=== PATIENT | male | born 1955 | race African-American/Black ===

== ENCOUNTER 2024-03-12 12:20 | Emergency (ER) | payer MEDICAID, OTHER, SELFPAY ==
--- NOTE | ~2024-03-12 | XR_ITS ---
EXAMINATION: XR chest 2V CLINICAL INFORMATION: Chest pain COMPARISON: No prior chest x-ray available in our system for comparison at the time of this dictation. TECHNIQUE: XR chest 2V, 2 Views Lungs and Sara: Both lungs are clear. Pleura: Normal. Costophrenic angles are sharp. No pneumothorax. Heart: The heart is normal in size. Mediastinum: The mediastinum is within normal limits.. Bones: Skeletal structures included are normal for patient's age. XR/XR chest 2V IMPRESSION: No radiographic evidence of acute cardiopulmonary disease.
[2024-03-12 12:42] LABS: Glucose, Whole Blood 377 mg/dL (60-115)
[2024-03-12 12:55] VITALS: BP 116/80; BP 179/84; PULSE 65; PULSE 99; RESP 16; TEMP 36.8; O2SAT 99
[2024-03-12 13:07] VITALS: BP 179/84; PULSE 99; RESP 16; TEMP 36.8; O2SAT 99; BMI 23.6
--- NOTE | 2024-03-12 13:15 | ECG_ITS ---
Test Reason : CHEST PAIN Blood Pressure : / mmHG Vent. Rate : 057 BPM Atrial Rate : 057 BPM P-R Int : 162 ms QRS Dur : 090 ms QT Int : 396 ms P-R-T Axes : 079 067 065 degrees QTc Int : 385 ms Sinus bradycardia Minimal voltage criteria for LVH, may be normal variant ( Sokolow-Dumont ) Borderline ECG No previous ECGs available Referred By: Bee Hensley Electronically Signed By:KENYATTA BEST MD
--- NOTE | 2024-03-12 13:15 | ED_ITS ---
HPI - Psych General Chief Complaint: Psychiatric Symptoms Stated Complaint: PSYCH W/HI, COOPERATIVE PER EMS Time Seen by Provider: 03/12/24 13:01 Source: patient, EMS and old records reviewed Mode of arrival: EMS Limitations: other (poor historian) History of Present Illness HPI Narrative: 68 yo male with TBI, dementia, schizophrenia, GERD, anxiety, seizures, HLD, HTN, COPD here with c/o reportedly having HI, agitation towards staff, attempting to leave [facility]. Sent on S12. He tells me he has rib pain no trauma x 1 month. complaint: other Onset (ago): day(s) (last day) Duration: intermittent History of same: Yes Relieving factors: none Exacerbating factors: other Associated psychiatric symptoms: none Associated symptoms: denies other symptoms Treatments prior to arrival: placed on mental health hold Related Data Allergies Allergy/AdvReac Type Severity Reaction Status Date / Time No Known Allergies Allergy Verified 03/12/24 13:16 Review of Systems 2 Review of Systems: ROS unable to be obtained due to poor historian. [facility] Past Medical History Attestation statement: The following information was validated with the patient. Source: old records reviewed Medical History Dementia History of alcohol abuse Diabetes Hypertension High cholesterol Paranoid schizophrenia GERD (gastroesophageal reflux disease) Anxiety and depression Seizure disorder Traumatic brain injury History of primary testicular cancer Surgical History History of orchiectomy Social History Social History Alcohol intake: former Patient Tobacco Use Status: Tobacco use Unknown Smoked in Last 30 Days: No Use of substances other than those prescribed or required for medical reasons: No Advance Directives: No Advance Directives Information Provided: No Do you have a plan to hurt others: No Plan Physical Exam 2 Vital Signs: Vital Signs: Last Vital Signs Temp 98.3 F 03/12/24 13:07 Pulse 99 03/12/24 13:07 Resp 16 03/12/24 13:07 BP 179/84 H 03/12/24 13:07 Pulse Ox 99 03/12/24 13:07 O2 Del Method Room Air 03/12/24 13:07 BMI result Body Mass Index 23.6 Appearance: Alert. Oriented to person and place. No acute distress. Eyes: Pupils equal, round and reactive to light. ENT: Pharynx normal. Neck: Normal inspection. Neck supple. CVS: Normal heart rate and rhythm. Pulses normal. Respiratory: No respiratory distress. Breath sounds normal. Abdomen: Soft and nontender. Skin: Skin warm and dry. Normal skin color. Normal skin turgor. Extremities: No lower extremity edema. Neuro: Oriented X 2. No motor deficit. No sensory deficit. CN2-12 intact Course Course Course Narrative: signed out to Dr. Crawford pending xray and CARE team input Medications Administered Generic Name Dose Route Start Last Admin Trade Name Freq PRN Reason Stop Dose Admin Insulin Human Lispro 0 unit 03/12/24 15:15 03/12/24 15:27 Insulin Lispro 100 Unit/Ml 3 Ml Vial SUBCUT 10 unit QIDACHS CHAIM Administration Protocol Medical Decision Making Medical Decision Making MDM Narrative: 68 yo male with TBI, dementia, schizophrenia, GERD, anxiety, seizures, HLD, HTN, COPD here with c/o HI and abnormal behaviors tried to [facility] at this time he is calm and cooperative will obtain basic labs and UA he does c/o rib pain x 1 month, EKG, CXR and trop x 1 ordered. Differential Diagnosis Differential Diagnoses: The differential diagnosis associated with the presentation includes dementia, schizophrenia Admission/Observation Consideration of admission/observation: Escalation of care including admission/observation considered physician observation started at 134pm pending CARE team and labs Consult Healthcare Provider Management of the patient was discussed with: Behavioral Health Provider Lab Data [facility] Lab Attestation statement: I reviewed the patient's lab results. 03/12/24 13:58 03/12/24 13:58 Labs: Lab Results 03/12/24 03/12/24 03/12/24 Range/Units 12:39 13:41 13:58 WBC 8.4 (4.8-10.8) X10*3/uL RBC 5.17 (4.60-5.80) X10*6/uL Hgb 15.3 (14.0-18.0) g/dl Hct 42.9 (42.0-52.0) % MCV 83.0 (80.0-98.0) fL MCH 29.6 (27.0-33.0) pg MCHC 35.7 (31.0-36.0) g/dl RDW 11.5 (11.0-16.0) % Plt Count 193 (160-400) X10*3/uL MPV 11.4 (9.4-12.4) fL Immature Gran % (Auto) 0.5 H (0.0-0.4) % Neut % (Auto) 72.2 (45-73) % Lymph % (Auto) 18.7 L (20-40) % [place] % (Auto) 6.7 (2-11) % Eos % (Auto) 1.3 (0-4) % Baso % (Auto) 0.6 (0-2) % Lymph # (Auto) 1.6 (1.2-4.9) X10*3/uL [place] # (Auto) 0.6 (0.1-1.2) X10*3/uL Eos # (Auto) 0.1 (0.0-0.4) X10*3/uL Baso # (Auto) 0.1 (0.0-0.2) X10*3/uL Abs Immat Gran (auto) 0.04 H (0.00-0.03) X10*3/uL Absolute Neuts (auto) 6.1 (2.0-8.3) x10*3/uL Absolute Nucleated RBC 0.000 (0.0-0.012) X10*3/uL Nucleated RBC % (auto) 0.0 (0.0-0.2) /100WBC Smear Tech's Comments VERIFIED Sodium 135 (135-145) mmol/L Potassium 4.2 (3.3-5.1) mmol/L Chloride 100 (96-108) mmol/L Carbon Dioxide 24 (22-29) mmol/L Anion Gap 15 (12-20) BUN 15 (9-16) mg/dL Creatinine 1.17 (0.5-1.4) mg/dL Estim Creat Clear Calc 59.5 Estimated GFR > 60 POC Glucose 377 H* (60-115) mg/dL Random Glucose 354 H* (60-115) mg/dL Calcium 10.2 (8.4-10.2) mg/dL Magnesium 2.1 (1.6-2.6) mg/dL Total Bilirubin 1.3 H (0.0-1.0) mg/dL Direct Bilirubin 0.5 (0.0-0.5) mg/dL AST 22 (5-37) U/L ALT 39 (0-40) U/L Alkaline Phosphatase 144 H (39-117) U/L Troponin I High Sens < 2.7 (<3.5-35.0) ng/L Total Protein 7.9 (6.5-8.0) g/dL Albumin 4.6 (3.5-5.0) g/dL Lipase 63 (8-78) U/L TSH 0.41 (0.32-4.0) uIU/mL Urine Color Yellow Urine Appearance Clear Urine pH 6.0 (5.0-9.0) Ur Specific [place] >= 1.030 H (1.005-1.025) Urine Protein Trace (Neg-Trace) mg/dL Urine Glucose (UA) >=1000 H (Negative) mg/dL Urine Ketones Negative (Negative) mg/dL Urine Blood Negative (Negative) Urine Nitrite Negative (Negative) Ur Leukocyte Esterase Negative (Negative) Urine RBC 0-2 (0-2) /HPF Urine WBC 6-10 H (0-5) /HPF Ur Squamous Epith Cells 0-2 (0-2) /HPF Urine Bacteria None Seen (None Seen) Hyaline Casts 0-2 (0-2) /LPF Urine Opiates Screen Not Detected (Not Detect) Ur Buprenorphine Scrn Not Detected (Not Detect) ng/mL Ur Oxycodone Screen Not Detected (Not Detect) ng/mL Urine Methadone Screen Not Detected (Not Detect) ng/mL Urine Fentanyl Screen Not Detected (Not Detect) Ur Barbiturates Screen Not Detected (Not Detect) Ur Phencyclidine Scrn Not Detected (Not Detect) Ur Amphetamines Screen Not Detected (Not Detect) U Benzodiazepines Scrn Not Detected (Not Detect) Urine Cocaine Screen Not Detected (Not Detect) U Marijuana (THC) Screen Not Detected (Not Detect) Independent Interpretation I performed an independent interpretation of an: EKG Interpretation: Rate: 57 Rhythm: sinus bradycardia [place]: normal Normal P waves. Normal AGUILA. Normal QRS complex. ST T wave : normal no MARISA qTC: 385 prior studies: no acute ischemia The study has been interpreted contemporaneously by me. . Independent Historian Clinical information obtained from an independent historian. History obtained from or confirmed by: EMS External Record Review External record reviewed: Inpatient record Discharge Plan Discharge Clinical Impression: Chronic schizophrenia Patient Disposition: Still a Patient Print Language: Syriac
[2024-03-12 13:59] LABS: Appearance Urine Clear; Color Urine Yellow; Glucose Urine UA >=1000 mg/dL (Negative); Leukocyte Esterase Urine Negative (Negative); Nitrite Urine Negative (Negative); Specific Gravity - Urine >= 1.030 (1.005-1.025); UMIC TRIGGER UACC YES; Urine Blood Negative (Negative); Urine Ketones Negative (Negative); Urine Protein Trace mg/dL (Neg-Trace)
[2024-03-12 14:02] LABS: Bacteria Urine None Seen (None Seen); Hyaline Casts Urine 0-2 /LPF (0-2); RBC Urine 0-2 /HPF (0-2); Squamous Epithelial Cell Urine 0-2 /HPF (0-2); UACC Culture Trigger YES
[2024-03-12 14:06] LABS: Basophils Absolute Auto 0.1 X10*3/uL (0.0-0.2); Basophils Percent Auto 0.6 % (0-2); Eosinophils Absolute Auto 0.1 X10*3/uL (0.0-0.4); Eosinophils Percent Auto 1.3 % (0-4); Hematocrit 42.9 % (42.0-52.0); Hemoglobin 15.3 g/dl (14.0-18.0); Imm Gran Abs Auto 0.04 X10*3/uL (0.00-0.03); Imm Gran Pct Auto 0.5 % (0.0-0.4); Lymphocytes Absolute Auto 1.6 X10*3/uL (1.2-4.9); Lymphocytes Percent Auto 18.7 % (20-40); MANUAL DIFF FLAG SCAN; Mean Corpuscular HGB Conc 35.7 g/dl (31.0-36.0); Mean Corpuscular Hemoglobin 29.6 pg (27.0-33.0); Monocytes Absolute Auto 0.6 X10*3/uL (0.1-1.2); Monocytes Percent Auto 6.7 % (2-11); Neutrophils Absolute Auto 6.1 x10*3/uL (2.0-8.3); Neutrophils Percent Auto 72.2 % (45-73); PLT CLUMP 1; Red Blood Count 5.17 X10*6/uL (4.60-5.80); Red Cell Distribution Width 11.5 % (11.0-16.0); SCAN SMEAR FLAG 1
[2024-03-12 14:08] LABS: White Blood Count 8.4 X10*3/uL (4.8-10.8)
[2024-03-12 14:09] LABS: Amphetamine Screen Urine Not Detected (Not Detect); Barbiturates, Urine Not Detected (Not Detect); Benzodiazepines Screen Urine Not Detected (Not Detect); Buprenorphine Scr Not Detected (Not Detect); Cannabinoid Screen Urine Not Detected (Not Detect); Cocaine Screen Urine Not Detected (Not Detect); Fentanyl, urine Not Detected (Not Detect); Methadone Screen, Urine Not Detected (Not Detect); Opiate Screen Urine Not Detected (Not Detect); Oxycodone Screen Urine Not Detected (Not Detect); Phencyclidine Screen Urine Not Detected (Not Detect)
[2024-03-12 14:32] LABS: Troponin-I High Sensitivity < 2.7 ng/L (<3.5-35.0)
[2024-03-12 14:33] LABS: Alanine Aminotransferase 39 U/L (0-40); Albumin Level 4.6 g/dL (3.5-5.0); Alkaline Phosphatase 144 U/L (39-117); Anion Gap 15 (12-20); Aspartate Amino Transferase 22 U/L (5-37); Bilirubin Direct 0.5 mg/dL (0.0-0.5); Bilirubin Total 1.3 mg/dL (0.0-1.0); Blood Urea Nitrogen 15 mg/dL (9-16); Calcium 10.2 mg/dL (8.4-10.2); Carbon Dioxide 24 mmol/L (22-29); Chloride 100 mmol/L (96-108); Creatinine Clr Calc Pharmacy 59.5; Estimated Glomerular Filt Rate > 60; Lipase 63 U/L (8-78); Magnesium 2.1 mg/dL (1.6-2.6); Potassium 4.2 mmol/L (3.3-5.1); Sodium 135 mmol/L (135-145); Total Protein 7.9 g/dL (6.5-8.0)
[2024-03-12 14:35] LABS: Mean Platelet Volume 11.4 fL (9.4-12.4); Platelet Count 193 X10*3/uL (160-400); SLIDE REVIEW VERIFIED
[2024-03-12 14:37] LABS: Glucose Random 354 mg/dL (60-115)
[2024-03-12 14:40] LABS: TSH reflex Free T4 0.41 uIU/mL (0.32-4.0)
[2024-03-12] MEDS: Insulin Lispro 100 UNIT/ML 3 ML VIAL SUBCUT ×2 (15:27→20:40)
--- NOTE | 2024-03-12 16:16 | MHC.CARE ---
Railroad Yard Worker called [facility] Casing erik Yadav [phone] who states she was unaware patient had been transported out for behaviors. She will follow-up with Sylvia Dailey APRN and have her call CARE Team office with releveant collateral information. Railroad Yard Worker also called patient's Legal Guardina Aleja Benitezbard [phone] and left detailed voicemail with request for return call.
--- NOTE | 2024-03-12 18:18 | PC.NURSE ---
Insulin Refusal Patient refused 2 units of insulin to cover 1730 POC of 186. PA Aware.
--- NOTE | 2024-03-12 18:31 | MHC.EDTECH ---
Patient given dinner tray
[2024-03-12 20:19] LABS: Glucose, Whole Blood 284 mg/dL (60-115)
[2024-03-12] MEDS: levETIRAcetam 500 MG TABLET PO (20:30)
[2024-03-12] MEDS: Atorvastatin Calcium 40 MG TABLET PO (20:31)
[2024-03-12] MEDS: risperiDONE 2 MG TABLET PO (20:31)
[2024-03-12 20:38] VITALS: BP 130/76; PULSE 74; RESP 15; TEMP 36.4; O2SAT 100
[2024-03-12 20:39] VITALS: BP 130/76
[2024-03-12] MEDS: amLODIPine Besylate 5 MG TABLET PO (20:39)
[2024-03-12 20:40] VITALS: BP 130/76; PULSE 74
[2024-03-12] MEDS: atenoloL 25 MG TABLET PO (20:40)
--- NOTE | 2024-03-12 23:30 | MHC.CM.ED ---
Pt cleared by CARE team for inpatient psych. From [facility]. Tried to elope and stated HI statements to staff. Pt has longstanding psych concerns, is a level 3 sex offender and has many psych admissions, including [facility]. Pt tells CM hwe does not want to return to [facility]. According to CARE team, he can return. Pt has a guardian, Aleja Harris ([phone]). CARE team left a message with her. CARE team feels that guardian should be notified of patient refusal to return to facility. Clinical paperwork uploaded to [facility] via [facility]. CM will need to call guardian in the morning, as she has not returned phone call. Pt will probably need to return to facility, as he will be very difficult to place d/t his psych hx and level 3 sex offender status. CM did not see patient for assessment as referral was just placed.
[2024-03-13 04:17] VITALS: BP 148/82; PULSE 61; RESP 15; TEMP 36.4; O2SAT 99
[2024-03-13 07:05] LABS: Glucose, Whole Blood 311 mg/dL (60-115)
[2024-03-13] MEDS: Insulin Lispro 100 UNIT/ML 3 ML VIAL SUBCUT ×2 (07:20→13:19)
[2024-03-13 09:02] VITALS: BP 147/76; PULSE 66; TEMP 36.2; O2SAT 100
[2024-03-13] MEDS: Aspirin Enteric Coated 81 MG TABLET.DR PO (09:02)
[2024-03-13] MEDS: risperiDONE 1 MG TABLET PO (09:02)
[2024-03-13] MEDS: lisinopriL 20 MG TABLET PO (09:02)
[2024-03-13] MEDS: levETIRAcetam 500 MG TABLET PO (09:02)
--- NOTE | 2024-03-13 09:34 | MHC.CM.PN ---
CM LEFT DETAILED MESSAGE WITH GUARDIAN LEORA SIMS WITH REQUEST TO RETURN CALL. [facility] WILL ACCEPT PT BACK AND BLS TRANSPORT HAS BEEN SET UP VIA [facility] FOR 2PM. SECOND MESSAGE LEFT WITH GUARDIAN DETAILING PLAN , AGAIN WITH REQUEST TO RETURN CALL.
[2024-03-13 13:08] LABS: Glucose, Whole Blood 277 mg/dL (60-115)
[2024-03-13 15:48] VITALS: BP 147/76; PULSE 66; RESP 15; TEMP 36.2; O2SAT 100
== END 2024-03-13 15:50 | disposition skilled nursing facility (03) ==
PROVIDERS: Emergency Provider Emergency Medicine; PCP Emergency Medicine
DX: F20.9 Schizophrenia, unspecified (principal); R45.1 Restlessness and agitation; Z87.820 Personal history of traumatic brain injury; E11.9 Type 2 diabetes mellitus without complications; I10 Essential (primary) hypertension; E78.5 Hyperlipidemia, unspecified; J44.9 Chronic obstructive pulmonary disease, unspecified; K21.9 Gastro-esophageal reflux disease without esophagitis; F03.90 Unspecified dementia, unspecified severity, without behavioral disturbance, psychotic disturbance, mood disturbance, and anxiety; Z79.02 Long term (current) use of antithrombotics/antiplatelets; Z79.899 Other long term (current) drug therapy; Z79.82 Long term (current) use of aspirin
CPT/HCPCS: 36415; 71046; 80048; 80076; 80307; 81001; 82947; 83690; 83735; 84443; 84484; 85025; 87086; 87147; 93005; 96374; 99285; S9485

== ENCOUNTER → 2024-03-12 13:15 | Outpatient (BNV) | payer MEDICAID, SELFPAY | PROVIDERS: Emergency Provider Emergency Medicine; PCP Emergency Medicine; Visit Provider Internal Medicine Cardiovascular Disease | DX: R00.1 Bradycardia, unspecified (principal) | CPT/HCPCS: 93010 ==